=== PATIENT | female | born 1935 | race Caucasian/White ===

== ENCOUNTER → 2017-11-29 13:43 | Outpatient (CLI) | payer MEDICARE, SELFPAY ==
--- NOTE | 2017-11-29 | DI.US.S_ITS ---
ULTRASOUND OF LEFT BREAST: 11/29/2017 CLINICAL: Patient returns today to evaluate a focal asymmetry in the left breast. Comparison is made to exams dated: 11/29/2017 mammogram, 11/09/2017 mammogram, 11/03/2016 mammogram, and 10/29/2015 mammogram - [facility]. Color flow ultrasound of the left breast was performed. Lema scale images of the real-time examination were reviewed. There is a 0.9 cm x 0.7 cm x 0.3 cm mass in the left breast at 1 o'clock middle depth 9 cm from the nipple. This mass is hypoechoic. IMPRESSION: SUSPICIOUS OF MALIGNANCY - FOLLOW-UP RECOMMENDED The 0.9 cm x 0.7 cm x 0.3 cm mass in the left breast is suspicious of malignancy. An ultrasound guided biopsy is recommended. Findings discussed in person with the patient at the time of evaluation by Dr. Bermudez of the department of radiology. This exam was interpreted at Station ID: [id number]. Electronically Signed By: Sudarshan Kirkpatrick M.D. cj/:11/29/2017 16:38:07 letter sent: Biopsy Required Ultrasound BI-RADS: 4 Suspicious abnormality
--- NOTE | 2017-11-29 13:47 | DI.MG.S_ITS ---
UNILATERAL LEFT DIAGNOSTIC MAMMOGRAM WITH ADDITIONAL VIEWS: 11/29/2017 CLINICAL: Additional evaluation requested from prior study. Comparison is made to exams dated: 11/09/2017 mammogram, 11/03/2016 mammogram, and 10/29/2015 mammogram - [facility]. The tissue of the left breast is heterogeneously dense. This may lower the sensitivity of mammography. There is a 9 mm asymmetry in the left breast posterior depth superior region seen on the mediolateral oblique view only. No other significant masses or calcifications are seen in the breast. IMPRESSION: INCOMPLETE: NEEDS ADDITIONAL IMAGING EVALUATION The 9 mm asymmetry in the left breast is indeterminate. An ultrasound is recommended. This exam was interpreted at Station ID: [id number]. NOTE: For mammograms, a report in lay terms will be sent to the patient. Approximately 15% of breast malignancies will not be visualized mammographically. In the management of a palpable breast mass, a negative mammogram must not discourage biopsy of a clinically suspicious lesion. Electronically Signed By: Sudarshan treviño/pablo:11/29/2017 16:36:43 ACR BI-RADS Category 0: Incomplete [id number]
== END ==
PROVIDERS: PCP Family Medicine; Visit Provider Family Medicine
DX: R92.8 Other abnormal and inconclusive findings on diagnostic imaging of breast (principal)
CPT/HCPCS: 76642; 77065; G0279

== ENCOUNTER → 2017-12-20 12:37 | Outpatient (CLI) | payer MEDICARE, SELFPAY | PROVIDERS: PCP Family Medicine; Visit Provider Family Medicine | DX: N63.20 Unspecified lump in the left breast, unspecified quadrant (principal) ==

== ENCOUNTER → 2018-03-22 12:38 | Outpatient (CLI) | payer MEDICARE, SELFPAY ==
--- NOTE | 2018-03-22 15:56 | DI.US.S_ITS ---
ULTRASOUND OF LEFT BREAST: 03/22/2018 CLINICAL: Biopsy of mass at 1 30 9cmfn on LEFT CANCELLED..UNABLE TO FIND MASS. Comparison is made to exams dated: 11/29/2017 ultrasound, 11/29/2017 mammogram, 11/09/2017 mammogram, and 11/03/2016 mammogram - [facility]. Color flow and ward scale ultrasound of the left breast was performed on the areas of interest where a prior US had found a suspicious hypoechoic abnormality that can no longer be found. The patient was scheduled for an US guided biopsy after the 11/29/17 US, but was on anticoagulants for a cardiac arrhythmia. The current US in the area of prior concern, 1:30 position 9 cm from the nipple, now appears normal. There are scattered fibroglandular elements in the left breast, as expected. IMPRESSION: PROBABLY BENIGN - FOLLOW-UP RECOMMENDED Clinician directed physical examination of the area of concern is recommended in the near term, and if a palpable mass is found proceeding directly to breast MRI would be recommended. The patent states she cannot feel an abnormality. If the physical examination is normal then proceeding to a follow-up mammogram in 3 months from now would be recommedned, which would provide a total of 7 months from her prior left diagnostic mammogram and US in November. Breast MRI was discussed with the patient and recommended if there is continued clinical concern, but she also questioned whether a shorter term followup mammogram on the left might be valuable given the unusual circumstances, and I do agree with that approach now even if the near term clinician performed physical examination is normal. This exam was interpreted at Station ID: [id number]. Electronically Signed By: Anibal Bermudez M.D. [facility]/:03/22/2018 17:51:10 letter sent: Followup Recommended Ultrasound BI-RADS: 3 Probably benign
== END ==
PROVIDERS: PCP Family Medicine; Visit Provider Family Medicine
DX: N63.20 Unspecified lump in the left breast, unspecified quadrant (principal)
CPT/HCPCS: 76642

== ENCOUNTER → 2018-04-21 10:01 | Outpatient (CLI) | payer MEDICARE, SELFPAY ==
--- NOTE | 2018-04-21 10:03 | DI.RAD.S_ITS ---
PROCEDURE: XR THORACIC SPINE INDICATIONS: scoliosis TECHNIQUE: 2 views of the thoracic spine were acquired. COMPARISON: [facility], CT, THORAX WITHOUT CONTRAST, 10/05/2016, 10:38. [facility], CR, XR LUMBAR SPINE 2-3V, 04/21/2018, 10:06. FINDINGS: Bones: There is 55? focal levoconvex scoliosis, which is centered at the L2 level. No acute fractures are detected. No suspicious lytic or blastic lesions are seen. Degenerative changes are seen, which are most prominent involving the thoracolumbar junction. Soft tissues: No paravertebral stripe thickening. IMPRESSION: 55? of levoconvex scoliosis, which is centered at the L2 level. Dictated by: Des Turcios M.D. on 04/21/2018 at 11:15 Approved by: Des Turcios M.D. on 04/21/2018 at 11:17
--- NOTE | 2018-04-21 10:03 | DI.RAD.S_ITS ---
PROCEDURE: XR LUMBAR SPINE 2-3V INDICATIONS: scoliosis TECHNIQUE: 3 views of the lumbar spine were acquired. COMPARISON: [facility], MR, L-SPINE WITHOUT CONTRAST, 04/07/2015, 10:11. [facility], CR, XR THORACIC SPINE 3V, 04/21/2018, 10:06. [facility], CR, L-SPINE 2-3 VIEWS, 03/04/2015, 12:29. FINDINGS: Bones: There is 55? of levoconvex scoliosis centered at the L2 level and this has progressed compared to 2014. No acute fractures are seen. Degenerative changes are seen, with moderate to severe disc space narrowing at the L1-L2, L2-L3, and L3-L4 levels. No suspicious lytic or blastic lesions are seen. Facet arthropathy is seen throughout, which is most prominent inferiorly. Soft tissues: Overlying bowel gas pattern is normal. No suspicious soft tissue calcifications. IMPRESSION: Levoconvex scoliosis and degenerative changes, which have progressed compared to 2014. Dictated by: Des Turcios M.D. on 04/21/2018 at 11:17 Approved by: Des Turcios M.D. on 04/21/2018 at 11:19
== END ==
PROVIDERS: PCP Family Medicine; Visit Provider Family Medicine
DX: M41.86 Other forms of scoliosis, lumbar region (principal); M48.061 Spinal stenosis, lumbar region without neurogenic claudication; M47.816 Spondylosis without myelopathy or radiculopathy, lumbar region
CPT/HCPCS: 72072; 72100

== ENCOUNTER → 2018-04-26 12:15 | Outpatient (CLI) | payer MEDICARE, SELFPAY ==
[2018-04-26 13:35] LABS: Alanine Aminotransferase 25 IU/L (9-52); Albumin 4.3 g/dL (3.5-5.0); Albumin Globulin Ratio 1.8 (1.0-2.8); Alkaline Phosphatase 72 U/L (38-126); Aspartate Aminotransferase 33 IU/L (14-36); Bilirubin Total 0.5 mg/dL (0.2-1.3); Blood Urea Nitrogen 24 mg/dL (7-17); Calcium 9.6 mg/dL (8.4-10.2); Carbon Dioxide 32 mmol/L (22-32); Chloride 101 mmol/L (98-107); Estimated Glomerular Filt Rate 53.2 mL/min (>60); Globulin 2.4 g/dL (1.7-4.1); Glucose 78 mg/dL (80-110); HEMOLYSIS < 15 (0-50); Potassium 4.2 mmol/L (3.4-5.1); Sodium 143 mmol/L (137-145); Total Protein 6.7 g/dL (6.3-8.2)
[2018-04-29 15:52] LABS: Alpha 1 Globulin 0.3 g/dL (0.2-0.3); Alpha 2 Globulin 0.7 g/dL (0.5-0.9); Beta 1 Globulin 0.5 g/dL (0.4-0.6); Gamma Globulin 0.5 g/dL (0.8-1.7); Protein, Total 6.4 g/dL (6.1-8.1)
== END ==
PROVIDERS: PCP Family Medicine; Visit Provider Family Medicine
DX: M41.9 Scoliosis, unspecified (principal)
CPT/HCPCS: 36415; 80053; 84155; 84165

== ENCOUNTER → 2018-05-11 10:02 | Outpatient (CLI) | payer MEDICARE, SELFPAY ==
[2018-05-11 13:01] LABS: Blood Urea Nitrogen 25 mg/dL (7-17); Calcium 9.6 mg/dL (8.4-10.2); Carbon Dioxide 31 mmol/L (22-32); Chloride 102 mmol/L (98-107); Estimated Glomerular Filt Rate 53.2 mL/min (>60); Glucose 54 mg/dL (80-110); HEMOLYSIS < 15 (0-50); Sodium 142 mmol/L (137-145)
[2018-05-11 13:03] LABS: Potassium 5.4 mmol/L (3.4-5.1)
== END ==
PROVIDERS: PCP Family Medicine; Visit Provider Family Medicine
DX: N63.20 Unspecified lump in the left breast, unspecified quadrant (principal)
CPT/HCPCS: 36415; 80048

== ENCOUNTER → 2018-07-17 13:30 | Outpatient (CLI) | payer MEDICARE, SELFPAY ==
--- NOTE | 2018-07-17 13:33 | DI.MRI.S_ITS ---
PROCEDURE: MR LUMBAR SPINE WO CON INDICATIONS: Scoliosis TECHNIQUE: Noncontrast sagittal T1 spin echo and T2 fast echo, sagittal STIR, axial T1 and T2 fast spin echo through the lumbar spine. In cases with scoliosis, additional coronal T2 fast spin echo may be performed. COMPARISON: [facility], MR, L-SPINE WITHOUT CONTRAST, 04/07/2015, 10:11. [facility], CR, XR LUMBAR SPINE 2-3V, 04/21/2018, 10:06. FINDINGS: Image quality: Excellent. Alignment and Curvature: There is trace L1-L2, L2-L3-L3-L4 retrolisthesis. There is approximately 40? of convex left of lumbar spine scoliosis. Bone Marrow: Mild reactive endplate changes noted adjacent to the L1-L2, L2-L3 and L3-L4 discs. No acute vertebral body compression fractures. Spinal Cord: Conus medullaris terminates at the L1-2 disc level. Visualized cord demonstrates normal signal and size. Paraspinous Soft Tissues: No paravertebral masses. L1-L2: Loss of disc signal and height. Moderate, diffuse disc bulge. Mild bilateral facet hypertrophy. Mild narrowing of the central canal. Moderate bilateral neural foraminal narrowing. No neural impingement. L2-L3: Loss of disc signal and height. Moderate, diffuse disc bulge. Mild bilateral facet hypertrophy. Mild narrowing of the central canal. Moderate right and mild left neural foraminal narrowing. No neural impingement. L3-L4: Loss of disc signal and height. Moderate, diffuse disc bulge. Mild bilateral facet hypertrophy. Mild narrowing of the central canal. Moderate bilateral neural foraminal narrowing. No neural impingement. L4-L5: Loss of disc signal. Mild, diffuse disc bulge. Mild right and moderate left facet hypertrophy. Mild narrowing of the central canal. Mild to moderate left neural foraminal narrowing. No neural impingement. L5-S1: Loss of disc signal. Mild, diffuse associated mild right and moderate left facet hypertrophy. No central stenosis. Mild left neural foraminal narrowing. No neural impingement. IMPRESSION: 1. Convex left thoracolumbar spine scoliosis. 2. Multilevel degenerative disc disease. 3. Multilevel facet arthropathy. 4. Mild L1-L2, L2-L3, L3-L4 and L4-L5 central canal narrowing. 5. Moderate bilateral L1-L2 and L3-L4 neural foraminal narrowing. Moderate right and mild left L2-L3 neural foraminal narrowing. Mild to moderate left L4-L5 neural foraminal narrowing. Mild left L5-S1 neural foraminal narrowing. 6. No neural impingement. Dictated by: Margarita Harris MD, PhD on 07/17/2018 at 16:27 Approved by: Margarita Harris MD, PhD on 07/17/2018 at 16:50
--- NOTE | 2018-07-17 13:33 | DI.MRI.S_ITS ---
PROCEDURE: MR THORACIC SPINE WO CON INDICATIONS: Scoliosis TECHNIQUE: Noncontrast sagittal T1 spine echo and T2 fast spin echo, sagittal STIR, axial T1 and T2 fast spin echo through the thoracic spine. COMPARISON: [facility], MR, MR LUMBAR SPINE WO CON, 07/17/2018, 14:23. [facility], CT, THORAX WITHOUT CONTRAST, 10/05/2016, 10:38. [facility], CR, XR THORACIC SPINE 3V, 04/21/2018, 10:06. FINDINGS: Image quality: Excellent. Alignment and Curvature: There is normal bony alignment. Convex left thoracolumbar spine scoliosis is noted which is best identified on MRI of the lumbar spine. Bone Marrow: Marrow is of normal overall signal. No acute vertebral body compression fractures. Spinal Cord: Visualized spinal cord is normal in size and signal. Paraspinous Soft Tissues: No paravertebral masses. Moderate-sized right and small left pleural effusions. Miscellaneous: Mild multilevel degenerative disc changes are noted. No central stenosis. No neural foraminal narrowing. No neural impingement. IMPRESSION: 1. Convex left scoliosis. 2. Multilevel degenerative disease 3. No central stenosis 4. No neural foraminal narrowing. 5. No neural impingement. 6. Bilateral pleural effusions. Dictated by: Margarita Harris MD, PhD on 07/17/2018 at 16:58 Approved by: Margarita Harris MD, PhD on 07/17/2018 at 17:01
== END ==
PROVIDERS: PCP Family Medicine; Visit Provider Family Medicine
DX: M51.36 Other intervertebral disc degeneration, lumbar region (principal); M41.85 Other forms of scoliosis, thoracolumbar region; M47.816 Spondylosis without myelopathy or radiculopathy, lumbar region; M48.061 Spinal stenosis, lumbar region without neurogenic claudication; M48.07 Spinal stenosis, lumbosacral region; M51.34 Other intervertebral disc degeneration, thoracic region; J90 Pleural effusion, not elsewhere classified
CPT/HCPCS: 72146; 72148

== ENCOUNTER → 2018-09-02 11:19 | Outpatient (CLI) | payer MEDICARE, SELFPAY ==
[2018-09-02 12:00] LABS: Alanine Aminotransferase 38 IU/L (9-52); Albumin 4.2 g/dL (3.5-5.0); Albumin Globulin Ratio 1.6 (1.0-2.8); Alkaline Phosphatase 92 U/L (38-126); Aspartate Aminotransferase 56 IU/L (14-36); Bilirubin Total 0.4 mg/dL (0.2-1.3); Blood Urea Nitrogen 36 mg/dL (7-17); Calcium 9.4 mg/dL (8.4-10.2); Carbon Dioxide 29 mmol/L (22-32); Chloride 103 mmol/L (98-107); Estimated Glomerular Filt Rate 53.1 mL/min (>60); Globulin 2.6 g/dL (1.7-4.1); Glucose 91 mg/dL (80-110); HEMOLYSIS < 15 (0-50); Potassium 4.6 mmol/L (3.4-5.1); Sodium 141 mmol/L (137-145); Total Protein 6.8 g/dL (6.3-8.2)
== END ==
PROVIDERS: PCP Family Medicine; Visit Provider Family Medicine
DX: N18.9 Chronic kidney disease, unspecified (principal)
CPT/HCPCS: 36415; 80053

== ENCOUNTER 2018-10-02 15:23 | Emergency (ER) | payer MEDICARE, SELFPAY ==
[2018-10-02 15:37] VITALS: BP 148/92; PULSE 72; RESP 18; TEMP 36.7; O2SAT 96
--- NOTE | 2018-10-02 16:44 | ED.EXTPRO ---
HPI - Extremity Problem <BURT Lopez - Last Filed: 10/02/18 22:05> General Chief complaint: Extremity Problem,Nontraumatic Stated complaint: swelling rt leg fluid Time Seen by Provider: 10/02/18 16:26 Source: patient Mode of arrival: ambulatory Limitations: no limitations History of Present Illness HPI Narrative: 83-year-old female with history of AFib that is a nonsmoker here for complaint having swelling to her bilateral lower extremities. she reports she has been seen for this in the past and she was prescribed HCTZ by her primary care provider a few weeks ago and she states she did not tolerate the medication well. So she quit taking it. She reports increased pain to her extremities over the past several days. She now has some clear drainage from the back of her right calf. No trauma to the area. She denies chest pain no shortness of breath. She denies fevers or chills. No diaphoresis. She does state that she has been on her feet more recently. He denies any pain. She does state that she was prescribed compression socks in the past however she did not like them so she she does not use them. MD Complaint: extremity swelling Related Data Home Medications Medication Instructions Recorded Confirmed metoprolol tartrate 100 mg PO BID #0 05/30/16 10/02/18 diltiazem HCl [Cartia XT] 240 mg PO DAILY 10/02/18 Previous Rx's Medication Instructions Recorded apixaban 2.5 mg tablet 2.5 mg PO BID #180 tab 07/24/18 hydrochlorothiazide 12.5 mg tablet 12.5 mg PO DAILY #30 tab 09/22/18 meclizine 25 mg tablet 25 mg PO DAILY PRN #30 tab 09/29/18 furosemide 40 mg PO BID #14 tab 10/02/18 Allergies Allergy/AdvReac Type Severity Reaction Status Date / Time levofloxacin [From LEVAQUIN] Allergy Intermediate knocked Verified 10/02/18 15:52 me out, weak and dizzy Sulfa (Sulfonamide Allergy Mild ITCHY WELTS Verified 10/02/18 15:52 Antibiotics) [SULFA (SULFONAMIDE ANTIBIOTICS)] Review of Systems <BURT Lopez - Last Filed: 10/02/18 22:05> Constitutional Denies chills, Denies fever(s), Denies lethargy and Denies weakness Eyes Denies change in vision, Denies eye discharge, Denies irritation and Denies loss of vision ENT Ears, Nose, Mouth, and Throat: Denies change in voice, Denies neck pain and Denies sore throat Cardiovascular Denies chest pain, Denies irregular heart rhythm, Denies lightheadedness, Denies palpitations, Denies dyspnea, Denies dyspnea on exertion and Denies orthopnea Respiratory Denies cough, Denies dyspnea, Denies dyspnea on exertion and Denies wheezing Gastrointestinal Gastrointestinal: Denies abdominal pain, Denies change in bowel habits, Denies diarrhea, Denies nausea and Denies vomiting Genitourinary Denies hematuria, Denies flank pain, Denies urinary incontinence and Denies urinary urgency Musculoskeletal Denies neck pain Comments: swelling to bilateral lower extremities with clear drainage from right lower extremity Calf area with small opening. no signs of infection. Neurologic Denies confusion, Denies loss of vision and Denies weakness Psychiatric Denies anxiety, Denies confusion, Denies depression, Denies homicidal ideation and Denies suicidal ideation Endocrine Denies palpitations Hematologic/Lymphatic Denies easy bruising Allergic/Immunologic Denies wheezing PFSH <BURT Lopez - Last Filed: 10/02/18 22:05> Medical History Atrial fibrillation (Chronic Unknown) Hearing loss (Chronic Unknown) Hypertension (Chronic Unknown) Osteopenia (Chronic Unknown) Spinal stenosis (Chronic Unknown) Tinnitus of both ears (Chronic Unknown) Pneumonia (Resolved 09/2016) Surgical History Hx of cystoscopy (Resolved 04/2011) Family History Father Hypertension Mother Hypertension Social History Smoking Status: Never smoker alcohol intake: never substance use type: does not use Family History Father Hypertension Mother Hypertension Social History Smoking Status: Never smoker alcohol intake: never substance use type: does not use Exam <BURT Lopez - Last Filed: 10/02/18 22:05> Initial Vital Signs Initial Vital Signs: Vital Signs Temperature 98.1 F 10/02/18 15:37 Pulse Rate 72 10/02/18 15:37 Respiratory Rate 18 10/02/18 15:37 Blood Pressure 148/92 H 10/02/18 15:37 Pulse Oximetry 96 10/02/18 15:37 Const General: cooperative and well developed Nutritional Appearance: well nourished Orientation: alert, awake, oriented x3 and not confused HENMT Mouth: oral mucosae normal and moist mucous membranes Eyes Conjunctivae: conjunctivae normal Sclera: sclerae normal Pupils: PERRL EOM: EOM intact bilaterally Resp Effort & Inspection: normal respiratory effort, able to speak in complete sentences, no respiratory distress and no use of accessory muscles Auscultation: clear to auscultation bilaterally, no rales, no rhonchi and no wheezes Cardio Rate: regular rate Rhythm: regular rhythm Heart Sounds: no click, no gallops, no murmurs and no rubs Pulses: normal peripheral pulses GI Inspection: non-distended Palpation: soft, no hepatosplenomegaly, No guarding, No pulsatile mass and No tender Auscultation: normal bowel sounds Skin General: no rashes or lesions noted, No jaundice and No petechiae Neuro General: alert, oriented x3, gait normal and no focal motor deficits Speech: speech normal Extrem Other: +2 to +3 pitting edema to bilateral lower extremities. No erythema. No increased temperature. Distal CMS is intact. Small open lesion to back of the right calf that is leaking serous drainage. <Hitesh Smart DO - Last Filed: 10/02/18 22:08> Initial Vital Signs Initial Vital Signs: Vital Signs Temperature 98.1 F 10/02/18 15:37 Pulse Rate 72 10/02/18 15:37 Respiratory Rate 18 10/02/18 15:37 Blood Pressure 148/92 H 10/02/18 15:37 Pulse Oximetry 96 10/02/18 15:37 Course <BURT Lopez - Last Filed: 10/02/18 22:05> Orders Ordered: ED Orders 10/02/18 17:23 XR chest 1V Stat 10/02/18 17:33 EKG-12 Lead Stat 10/02/18 17:45 B Type Natriuretic Peptide Stat Complete Blood Count AUTO DIFF Stat Comprehensive Metabolic Panel Stat Prothrombin Time INR Stat Troponin & CK Cardiac Panel Stat Discontinued Medications Furosemide (Lasix) 40 mg IV NOW ONE Stop: 10/02/18 18:49 Last Admin: 10/02/18 19:12 Dose: 40 mg Vital Signs - 8 hr 10/02/18 15:37 10/02/18 18:01 10/02/18 19:30 Temperature 98.1 F Pulse Rate 72 68 58 L Respiratory Rate 18 18 11 L Blood Pressure 148/92 H Blood Pressure [Right Arm] 124/81 137/97 H Pulse Oximetry 96 93 93 <Hitesh Smart DO - Last Filed: 10/02/18 22:08> Orders Ordered: ED Orders 10/02/18 17:23 XR chest 1V Stat 10/02/18 17:33 EKG-12 Lead Stat 10/02/18 17:45 B Type Natriuretic Peptide Stat Complete Blood Count AUTO DIFF Stat Comprehensive Metabolic Panel Stat Prothrombin Time INR Stat Troponin & CK Cardiac Panel Stat Discontinued Medications Furosemide (Lasix) 40 mg IV NOW ONE Stop: 10/02/18 18:49 Last Admin: 10/02/18 19:12 Dose: 40 mg Vital Signs - 8 hr 10/02/18 15:37 10/02/18 18:01 10/02/18 19:30 Temperature 98.1 F Pulse Rate 72 68 58 L Respiratory Rate 18 18 11 L Blood Pressure 148/92 H Blood Pressure [Right Arm] 124/81 137/97 H Pulse Oximetry 96 93 93 MDM - Extremity (Nontraumatic) <BURT Lopez - Last Filed: 10/02/18 22:05> Lab Data Result diagrams: 10/02/18 17:45 10/02/18 17:45 Lab Results 10/02/18 10/02/18 10/02/18 Range/Units 17:45 17:45 17:45 WBC 6.3 (4.5-11.0) X10^3/uL RBC 4.85 (4.0-5.2) X10^6/uL Hgb 14.6 (12.0-16.0) g/dL Hct 44.9 (36-46) % MCV 92.6 (80-100) fL MCH 30.2 (26-34) PG MCHC 32.6 (30-36) % RDW 14.3 (11.6-14.8) % Plt Count 104 L (150-400) X10^3/uL Neut % (Auto) 76.5 H (50-75) % Lymph % (Auto) 14.1 L (25-40) % [place] % (Auto) 7.7 (3-14) % Eos % (Auto) 1.5 L (2-4) % Baso % (Auto) 0.2 (0-2) % Neut # (Auto) 4800 (0376-0687) /uL Lymph # (Auto) 900 L (1907-1167) /uL [place] # (Auto) 500 (0-900) /uL Eos # (Auto) 100 (0-450) /uL Baso # (Auto) 0 (0-100) /uL PT 13.6 H (10.1-12.7) SECONDS INR 1.2 (0.9-1.3) Sodium 139 (137-145) mmol/L Potassium 4.3 (3.4-5.1) mmol/L Chloride 103 (98-107) mmol/L Carbon Dioxide 26 (22-32) mmol/L BUN 29 H (7-17) mg/dL Creatinine 1.10 H (0.52-1.04) mg/dL Estimated GFR 47.6 L (>60) mL/min BUN/Creatinine Ratio 26.4 H (6-22) Glucose 86 (80-110) mg/dL Calcium 9.7 (8.4-10.2) mg/dL Total Bilirubin 0.5 (0.2-1.3) mg/dL AST 61 H (14-36) IU/L ALT 53 H (9-52) IU/L Alkaline Phosphatase 104 (38-126) U/L Total Creatine Kinase 107 (30-135) U/L CK-MB (CK-2) 6.07 H (<2.37) ng/mL CK-MB (CK-2) Rel Index 5.7 H (1.5-5.0) % Troponin I < 0.012 (0.01-0.034) ng/mL B-Natriuretic Peptide 523 H (<100) Total Protein 6.7 (6.3-8.2) g/dL Albumin 3.9 (3.5-5.0) g/dL Globulin 2.8 (1.7-4.1) g/dL Albumin/Globulin Ratio 1.4 (1.0-2.8) Imaging Data Chest x-ray: Radiologist's impression: [address] [place] [id number] XRay Report Signed Patient: Nighat Doll MMR#: [id number] : 6Acct:[id number] Age/Sex: 83 / FDate of Service: 10/02/18 Loc: ED Accession Number: [id number] Procedure: XR chest 1V Ordering Provider: Toni Aparicio PROCEDURE: XR CHEST 1V INDICATIONS: swelling to bilateral lower extremities TECHNIQUE: One view of the chest was acquired. COMPARISON: [facility], CHEST 2 VIEW, 10/10/2017, 7:52. FINDINGS: Surgical changes and devices: None. Lungs and pleura: There is a small to moderate right pleural effusion which is new when compared with the prior chest film dated 10/10/17. Consolidation is likely present at the left lung base. The left lung is clear. The lung volumes are large and the diaphragms are flattened suggesting emphysema. Mediastinum: Mediastinal contours appear normal. Heart size is normal. Bones and chest wall: No suspicious bony lesions. Overlying soft tissues appear unremarkable. IMPRESSION: Right pleural effusion and basilar consolidation. Short interval followup is recommended to ensure resolution of this finding and exclude underlying pulmonary pathology. Dictated by: Cathi Traylor M.D. on 10/02/2018 at 17:41 Approved by: Cathi Traylor M.D. on 10/02/2018 at 17:41 ECG Data Interpretation: EKG shows atrial fibrillation with no ST elevation or depression. No ectopy. Ventricular rate of 77. QRS duration of 93. QTC of 407 MDM Narrative Medical decision making narrative: chest x-ray was obtained and it shows some right pleural effusion and basilar consolidation. CBC and Chem panel were obtained were unremarkable. cardiac enzymes were negative. BNP was obtained and shows elevation at 500. This is over where she has been before which is normally run around 2-300. Suggestive that her symptoms are due to A bump in her CHF. believe that the findings in the chest ray is secondary to this. Discussed case with Dr. Mi who is on-call for Dr. Bess who recommends given the patient IV Lasix here in the emergency room. He then recommends outpatient treatment with 40 of Lasix b.i.d. and then follow up with Dr. Bess in the next couple days for re-evaluation. Lasix prescription is provided. Elevation to help with swelling to lower extremities. Return emergency room for any worsening symptoms <Hitesh SmartDO - Last Filed: 10/02/18 22:08> Lab Data Lab Results 10/02/18 10/02/18 10/02/18 Range/Units 17:45 17:45 17:45 WBC 6.3 (4.5-11.0) X10^3/uL RBC 4.85 (4.0-5.2) X10^6/uL Hgb 14.6 (12.0-16.0) g/dL Hct 44.9 (36-46) % MCV 92.6 (80-100) fL MCH 30.2 (26-34) PG MCHC 32.6 (30-36) % RDW 14.3 (11.6-14.8) % Plt Count 104 L (150-400) X10^3/uL Neut % (Auto) 76.5 H (50-75) % Lymph % (Auto) 14.1 L (25-40) % [place] % (Auto) 7.7 (3-14) % Eos % (Auto) 1.5 L (2-4) % Baso % (Auto) 0.2 (0-2) % Neut # (Auto) 4800 (4289-3207) /uL Lymph # (Auto) 900 L (6931-0042) /uL [place] # (Auto) 500 (0-900) /uL Eos # (Auto) 100 (0-450) /uL Baso # (Auto) 0 (0-100) /uL PT 13.6 H (10.1-12.7) SECONDS INR 1.2 (0.9-1.3) Sodium 139 (137-145) mmol/L Potassium 4.3 (3.4-5.1) mmol/L Chloride 103 (98-107) mmol/L Carbon Dioxide 26 (22-32) mmol/L BUN 29 H (7-17) mg/dL Creatinine 1.10 H (0.52-1.04) mg/dL Estimated GFR 47.6 L (>60) mL/min BUN/Creatinine Ratio 26.4 H (6-22) Glucose 86 (80-110) mg/dL Calcium 9.7 (8.4-10.2) mg/dL Total Bilirubin 0.5 (0.2-1.3) mg/dL AST 61 H (14-36) IU/L ALT 53 H (9-52) IU/L Alkaline Phosphatase 104 (38-126) U/L Total Creatine Kinase 107 (30-135) U/L CK-MB (CK-2) 6.07 H (<2.37) ng/mL CK-MB (CK-2) Rel Index 5.7 H (1.5-5.0) % Troponin I < 0.012 (0.01-0.034) ng/mL B-Natriuretic Peptide 523 H (<100) Total Protein 6.7 (6.3-8.2) g/dL Albumin 3.9 (3.5-5.0) g/dL Globulin 2.8 (1.7-4.1) g/dL Albumin/Globulin Ratio 1.4 (1.0-2.8) Discharge Plan Departure Patient Disposition: Home Clinical Impression: Congestive heart failure (CHF) Qualifiers: Heart failure type: unspecified Heart failure chronicity: unspecified Qualified Code(s): I50.9 - Heart failure, unspecified Discharge Date/Time: 10/02/18 20:00 Interventions: ED Discharge Assessment Last Done: 10/02/18 20:05 Instructions: DI for Heart Failure Activity Restrictions/Additional Instructions: laboratory results and that chest x-ray shows exacerbation of heart failure. You are placed on Lasix which is a diuretic to remove some of the fluid building up in her legs and lungs. Use as directed. Follow up with your primary care provider here in the next couple days for re-evaluation. Call the office number to schedule follow-up appointment. For any worsening symptoms return to the emergency room. Elevate lower extremities to help with swelling. Prescriptions: New furosemide 40 mg tablet 40 mg PO BID Qty: 14 RF: 0 No Action meclizine 25 mg tablet 25 mg PO DAILY PRN (Reason: dizziness) Qty: 30 RF: 0 metoprolol tartrate 100 MG tablet 100 mg PO BID Qty: 0 RF: 0 apixaban [Eliquis] 2.5 mg tablet 2.5 mg PO BID Qty: 180 RF: 0 hydrochlorothiazide 12.5 mg tablet 12.5 mg PO DAILY Qty: 30 RF: 0 diltiazem HCl [Cartia XT] 120 mg capsule,extended release 24hr 240 mg PO DAILY RF: 0 Referrals: Kierra Bess DO [Primary Care Provider] - <Hitesh Smart DO - Last Filed: 10/02/18 22:08> Cosign ED Attending [place] Attestation: I was available for consultation during this patient's emergency department encounter
--- NOTE | 2018-10-02 17:01 | PC.NURSE ---
pt reports she has been working with her provider with trying to get the fluid off her legs, but she isn't tolerating the medications they have put her on. She is worried because her right leg is leaking fluid. And she takes Elaquis. Pt NAD and lungs are clear. Able to palpate both pedal pulses although her lower legs are edematous. Pt's needs met.
--- NOTE | 2018-10-02 17:23 | DI.RAD.S_ITS ---
PROCEDURE: XR CHEST 1V INDICATIONS: swelling to bilateral lower extremities TECHNIQUE: One view of the chest was acquired. COMPARISON: [facility], , CHEST 2 VIEW, 10/10/2017, 7:52. FINDINGS: Surgical changes and devices: None. Lungs and pleura: There is a small to moderate right pleural effusion which is new when compared with the prior chest film dated 10/10/17. Consolidation is likely present at the left lung base. The left lung is clear. The lung volumes are large and the diaphragms are flattened suggesting emphysema. Mediastinum: Mediastinal contours appear normal. Heart size is normal. Bones and chest wall: No suspicious bony lesions. Overlying soft tissues appear unremarkable. IMPRESSION: Right pleural effusion and basilar consolidation. Short interval followup is recommended to ensure resolution of this finding and exclude underlying pulmonary pathology. Dictated by: Cathi Traylor M.D. on 10/02/2018 at 17:41 Approved by: Cathi Traylor M.D. on 10/02/2018 at 17:41
[2018-10-02 17:52] LABS: Add Manual Diff / Slide Review NO; Basophils Absolute Auto 0 /uL (0-100); Basophils Percent Auto 0.2 % (0-2); Eosinophils Absolute Auto 100 /uL (0-450); Eosinophils Percent Auto 1.5 % (2-4); Hematocrit 44.9 % (36-46); Hemoglobin 14.6 g/dL (12.0-16.0); Lymphocytes Absolute Auto 900 /uL (1100-4500); Lymphocytes Percent Auto 14.1 % (25-40); Mean Corpuscular HGB Conc 32.6 % (30-36); Mean Corpuscular Hemoglobin 30.2 PG (26-34); Mean Corpuscular Volume 92.6 fL (80-100); Monocytes Absolute Auto 500 /uL (0-900); Monocytes Percent Auto 7.7 % (3-14); Neutrophils Absolute Auto 4800 /uL (1500-7000); Neutrophils Percent Auto 76.5 % (50-75); Platelet Count 104 X10^3/uL (150-400); Red Blood Cell Count 4.85 X10^6/uL (4.0-5.2); Red Cell Distribution Width 14.3 % (11.6-14.8); White Blood Cell Count 6.3 X10^3/uL (4.5-11.0)
[2018-10-02 18:01] VITALS: BP 124/81; PULSE 68; RESP 18; O2SAT 93
[2018-10-02 18:08] LABS: INR 1.2 (0.9-1.3); Prothrombin Time 13.6 SECONDS (10.1-12.7)
[2018-10-02 18:13] LABS: Alanine Aminotransferase 53 IU/L (9-52); Albumin 3.9 g/dL (3.5-5.0); Albumin Globulin Ratio 1.4 (1.0-2.8); Alkaline Phosphatase 104 U/L (38-126); Aspartate Aminotransferase 61 IU/L (14-36); BUN Creatinine Ratio 26.4 (6-22); Bilirubin Total 0.5 mg/dL (0.2-1.3); Blood Urea Nitrogen 29 mg/dL (7-17); Calcium 9.7 mg/dL (8.4-10.2); Carbon Dioxide 26 mmol/L (22-32); Chloride 103 mmol/L (98-107); Creatine Kinase 107 U/L (30-135); Estimated Glomerular Filt Rate 47.6 mL/min (>60); Globulin 2.8 g/dL (1.7-4.1); Glucose 86 mg/dL (80-110); HEMOLYSIS 17 (0-50); Potassium 4.3 mmol/L (3.4-5.1); Sodium 139 mmol/L (137-145); Total Protein 6.7 g/dL (6.3-8.2)
[2018-10-02 18:24] LABS: Troponin I < 0.012 ng/mL (0.01-0.034)
[2018-10-02 18:25] LABS: B Type Natriuretic Peptide 523 (<100)
[2018-10-02 18:28] LABS: CKMB % Relative Index 5.7 % (1.5-5.0); Creatine Kinase MB 6.07 ng/mL (<2.37)
--- NOTE | 2018-10-02 19:01 | ED_ITS ---
HPI - Extremity Problem <BURT Lopez - Last Filed: 10/02/18 22:05> General Chief complaint: Extremity Problem,Nontraumatic Stated complaint: swelling rt leg fluid Time Seen by Provider: 10/02/18 16:26 Source: patient Mode of arrival: ambulatory Limitations: no limitations History of Present Illness HPI Narrative: 83-year-old female with history of AFib that is a nonsmoker here for complaint having swelling to her bilateral lower extremities. she reports she has been seen for this in the past and she was prescribed HCTZ by her primary care provider a few weeks ago and she states she did not tolerate the medication well. So she quit taking it. She reports increased pain to her extremities over the past several days. She now has some clear drainage from the back of her right calf. No trauma to the area. She denies chest pain no shortness of breath. She denies fevers or chills. No diaphoresis. She does state that she has been on her feet more recently. He denies any pain. She does state that she was prescribed compression socks in the past however she did not like them so she she does not use them. MD Complaint: extremity swelling Related Data Home Medications Medication Instructions Recorded Confirmed metoprolol tartrate 100 mg PO BID #0 05/30/16 10/02/18 diltiazem HCl [Cartia XT] 240 mg PO DAILY 10/02/18 Previous Rx's Medication Instructions Recorded apixaban 2.5 mg tablet 2.5 mg PO BID #180 tab 07/24/18 hydrochlorothiazide 12.5 mg tablet 12.5 mg PO DAILY #30 tab 09/22/18 meclizine 25 mg tablet 25 mg PO DAILY PRN #30 tab 09/29/18 furosemide 40 mg PO BID #14 tab 10/02/18 Allergies Allergy/AdvReac Type Severity Reaction Status Date / Time levofloxacin [From LEVAQUIN] Allergy Intermediate knocked Verified 10/02/18 15:52 me out, weak and dizzy Sulfa (Sulfonamide Allergy Mild ITCHY WELTS Verified 10/02/18 15:52 Antibiotics) [SULFA (SULFONAMIDE ANTIBIOTICS)] Review of Systems <BURT Lopez - Last Filed: 10/02/18 22:05> Constitutional Denies chills, Denies fever(s), Denies lethargy and Denies weakness Eyes Denies change in vision, Denies eye discharge, Denies irritation and Denies loss of vision ENT Ears, Nose, Mouth, and Throat: Denies change in voice, Denies neck pain and Denies sore throat Cardiovascular Denies chest pain, Denies irregular heart rhythm, Denies lightheadedness, Denies palpitations, Denies dyspnea, Denies dyspnea on exertion and Denies orthopnea Respiratory Denies cough, Denies dyspnea, Denies dyspnea on exertion and Denies wheezing Gastrointestinal Gastrointestinal: Denies abdominal pain, Denies change in bowel habits, Denies diarrhea, Denies nausea and Denies vomiting Genitourinary Denies hematuria, Denies flank pain, Denies urinary incontinence and Denies urinary urgency Musculoskeletal Denies neck pain Comments: swelling to bilateral lower extremities with clear drainage from r ight lower extremity Calf area with small opening. no signs of infection. Neurologic Denies confusion, Denies loss of vision and Denies weakness Psychiatric Denies anxiety, Denies confusion, Denies depression, Denies homicidal ideation and Denies suicidal ideation Endocrine Denies palpitations Hematologic/Lymphatic Denies easy bruising Allergic/Immunologic Denies wheezing PFSH <BURT Lopez - Last Filed: 10/02/18 22:05> Medical History Atrial fibrillation (Chronic Unknown) Hearing loss (Chronic Unknown) Hypertension (Chronic Unknown) Osteopenia (Chronic Unknown) Spinal stenosis (Chronic Unknown) Tinnitus of both ears (Chronic Unknown) Pneumonia (Resolved 09/2016) Surgical History Hx of cystoscopy (Resolved 04/2011) Family History Father Hypertension Mother Hypertension Social History Smoking Status: Never smoker alcohol intake: never substance use type: does not use Family History Father Hypertension Mother Hypertension Social History Smoking Status: Never smoker alcohol intake: never substance use type: does not use Exam <BURT Lopez - Last Filed: 10/02/18 22:05> Initial Vital Signs Initial Vital Signs: Vital Signs Temperature 98.1 F 10/02/18 15:37 Pulse Rate 72 10/02/18 15:37 Respiratory Rate 18 10/02/18 15:37 Blood Pressure 148/92 H 10/02/18 15:37 Pulse Oximetry 96 10/02/18 15:37 Const General: cooperative and well developed Nutritional Appearance: well nourished Orientation: alert, awake, oriented x3 and not confused HENMT Mouth: oral mucosae normal and moist mucous membranes Eyes Conjunctivae: conjunctivae normal Sclera: sclerae normal Pupils: PERRL EOM: EOM intact bilaterally Resp Effort & Inspection: normal respiratory effort, able to speak in complete sentences, no respiratory distress and no use of accessory muscles Auscultation: clear to auscultation bilaterally, no rales, no rhonchi and no wheezes Cardio Rate: regular rate Rhythm: regular rhythm Heart Sounds: no click, no gallops, no murmurs and no rubs Pulses: normal peripheral pulses GI Inspection: non-distended Palpation: soft, no hepatosplenomegaly, No guarding, No pulsatile mass and No tender Auscultation: normal bowel sounds Skin General: no rashes or lesions noted, No jaundice and No petechiae Neuro General: alert, oriented x3, gait normal and no focal motor deficits Speech: speech normal Extrem Other: +2 to +3 pitting edema to bilateral lower extremities. No erythema. No increased temperature. Distal CMS is intact. Small open lesion to back of the right calf that is leaking serous drainage. <Hitesh Smart DO - Last Filed: 10/02/18 22:08> Initial Vital Signs Initial Vital Signs: Vital Signs Temperature 98.1 F 10/02/18 15:37 Pulse Rate 72 10/02/18 15:37 Respiratory Rate 18 10/02/18 15:37 Blood Pressure 148/92 H 10/02/18 15:37 Pulse Oximetry 96 10/02/18 15:37 Course <BURT Lopez - Last Filed: 10/02/18 22:05> Orders Ordered: ED Orders 10/02/18 17:23 XR chest 1V Stat 10/02/18 17:33 EKG-12 Lead Stat 10/02/18 17:45 B Type Natriuretic Peptide Stat Complete Blood Count AUTO DIFF Stat Comprehensive Metabolic Panel Stat Prothrombin Time INR Stat Troponin & CK Cardiac Panel Stat Discontinued Medications Furosemide (Lasix) 40 mg IV NOW ONE Stop: 10/02/18 18:49 Last Admin: 10/02/18 19:12 Dose: 40 mg Vital Signs - 8 hr 10/02/18 15:37 10/02/18 18:01 10/02/18 19:30 Temperature 98.1 F Pulse Rate 72 68 58 L Respiratory Rate 18 18 11 L Blood Pressure 148/92 H Blood Pressure [Right Arm] 124/81 137/97 H Pulse Oximetry 96 93 93 <Hitesh Smart DO - Last Filed: 10/02/18 22:08> Orders Ordered: ED Orders 10/02/18 17:23 XR chest 1V Stat 10/02/18 17:33 EKG-12 Lead Stat 10/02/18 17:45 B Type Natriuretic Peptide Stat Complete Blood Count AUTO DIFF Stat Comprehensive Metabolic Panel Stat Prothrombin Time INR Stat Troponin & CK Cardiac Panel Stat Discontinued Medications Furosemide (Lasix) 40 mg IV NOW ONE Stop: 10/02/18 18:49 Last Admin: 10/02/18 19:12 Dose: 40 mg Vital Signs - 8 hr 10/02/18 15:37 10/02/18 18:01 10/02/18 19:30 Temperature 98.1 F Pulse Rate 72 68 58 L Respiratory Rate 18 18 11 L Blood Pressure 148/92 H Blood Pressure [Right Arm] 124/81 137/97 H Pulse Oximetry 96 93 93 MDM - Extremity (Nontraumatic) <BURT Lopez - Last Filed: 10/02/18 22:05> Lab Data Result diagrams: 10/02/18 17:45 10/02/18 17:45 Lab Results 10/02/18 10/02/18 10/02/18 Range/Units 17:45 17:45 17:45 WBC 6.3 (4.5-11.0) X10^3/uL RBC 4.85 (4.0-5.2) X10^6/uL Hgb 14.6 (12.0-16.0) g/dL Hct 44.9 (36-46) % MCV 92.6 (80-100) fL MCH 30.2 (26-34) PG MCHC 32.6 (30-36) % RDW 14.3 (11.6-14.8) % Plt Count 104 L (150-400) X10^3/uL Neut % (Auto) 76.5 H (50-75) % Lymph % (Auto) 14.1 L (25-40) % [place] % (Auto) 7.7 (3-14) % Eos % (Auto) 1.5 L (2-4) % Baso % (Auto) 0.2 (0-2) % Neut # (Auto) 4800 (3178-6897) /uL Lymph # (Auto) 900 L (9683-1034) /uL [place] # (Auto) 500 (0-900) /uL Eos # (Auto) 100 (0-450) /uL Baso # (Auto) 0 (0-100) /uL PT 13.6 H (10.1-12.7) SECONDS INR 1.2 (0.9-1.3) Sodium 139 (137-145) mmol/L Potassium 4.3 (3.4-5.1) mmol/L Chloride 103 (98-107) mmol/L Carbon Dioxide 26 (22-32) mmol/L BUN 29 H (7-17) mg/dL Creatinine 1.10 H (0.52-1.04) mg/dL Estimated GFR 47.6 L (>60) mL/min BUN/Creatinine Ratio 26.4 H (6-22) Glucose 86 (80-110) mg/dL Calcium 9.7 (8.4-10.2) mg/dL Total Bilirubin 0.5 (0.2-1.3) mg/dL AST 61 H (14-36) IU/L ALT 53 H (9-52) IU/L Alkaline Phosphatase 104 (38-126) U/L Total Creatine Kinase 107 (30-135) U/L CK-MB (CK-2) 6.07 H (<2.37) ng/mL CK-MB (CK-2) Rel Index 5.7 H (1.5-5.0) % Troponin I < 0.012 (0.01-0.034) ng/mL B-Natriuretic Peptide 523 H (<100) Total Protein 6.7 (6.3-8.2) g/dL Albumin 3.9 (3.5-5.0) g/dL Globulin 2.8 (1.7-4.1) g/dL Albumin/Globulin Ratio 1.4 (1.0-2.8) Imaging Data Chest x-ray: Radiologist's impression: [address] [place] [id number] XRay Report Signed Patient: Nighat Doll MMR#: [id number] : 6Acct:[id number] Age/Sex: 83 / FDate of Service: 10/02/18 Loc: ED Accession Number: [id number] Procedure: XR chest 1V Ordering Provider: Toni Aparicio PROCEDURE: XR CHEST 1V INDICATIONS: swelling to bilateral lower extremities TECHNIQUE: One view of the chest was acquired. COMPARISON: [facility], CHEST 2 VIEW, 10/10/2017, 7:52. FINDINGS: Surgical changes and devices: None. Lungs and pleura: There is a small to moderate right pleural effusion which is new when compared with the prior chest film dated 10/10/17. Consolidation is likely present at the left lung base. The left lung is clear. The lung volumes are large and the diaphragms are flattened suggesting emphysema. Mediastinum: Mediastinal contours appear normal. Heart size is normal. Bones and chest wall: No suspicious bony lesions. Overlying soft tissues appear unremarkable. IMPRESSION: Right pleural effusion and basilar consolidation. Short interval followup is recommended to ensure resolution of this finding and exclude underlying pulmonary pathology. Dictated by: Cathi Traylor M.D. on 10/02/2018 at 17:41 Approved by: Cathi Traylor M.D. on 10/02/2018 at 17:41 ECG Data Interpretation: EKG shows atrial fibrillation with no ST elevation or depression. No ectopy. Ventricular rate of 77. QRS duration of 93. QTC of 407 MDM Narrative Medical decision making narrative: chest x-ray was obtained and it shows some right pleural effusion and basilar consolidation. CBC and Chem panel were obtained were unremarkable. cardiac enzymes were negative. BNP was obtained and shows elevation at 500. This is over where she has been before which is normally run around 2-300. Suggestive that her symptoms are due to A bump in her CHF. believe that the findings in the chest ray is secondary to this. Discussed case with Dr. Mi who is on-call for Dr. Bess who recommends given the patient IV Lasix here in the emergency room. He then recommends outpatient treatment with 40 of Lasix b.i.d. and then follow up with Dr. Bess in the next couple days for re-evaluation. Lasix prescription is provided. Elevation to help with swelling to lower extremities. Return emergency room for any worsening symptoms <Hitesh Smart, - Last Filed: 10/02/18 22:08> Lab Data Lab Results 10/02/18 10/02/18 10/02/18 Range/Units 17:45 17:45 17:45 WBC 6.3 (4.5-11.0) X10^3/uL RBC 4.85 (4.0-5.2) X10^6/uL Hgb 14.6 (12.0-16.0) g/dL Hct 44.9 (36-46) % MCV 92.6 (80-100) fL MCH 30.2 (26-34) PG MCHC 32.6 (30-36) % RDW 14.3 (11.6-14.8) % Plt Count 104 L (150-400) X10^3/uL Neut % (Auto) 76.5 H (50-75) % Lymph % (Auto) 14.1 L (25-40) % [place] % (Auto) 7.7 (3-14) % Eos % (Auto) 1.5 L (2-4) % Baso % (Auto) 0.2 (0-2) % Neut # (Auto) 4800 (2167-2383) /uL Lymph # (Auto) 900 L (9845-5976) /uL [place] # (Auto) 500 (0-900) /uL Eos # (Auto) 100 (0-450) /uL Baso # (Auto) 0 (0-100) /uL PT 13.6 H (10.1-12.7) SECONDS INR 1.2 (0.9-1.3) Sodium 139 (137-145) mmol/L Potassium 4.3 (3.4-5.1) mmol/L Chloride 103 (98-107) mmol/L Carbon Dioxide 26 (22-32) mmol/L BUN 29 H (7-17) mg/dL Creatinine 1.10 H (0.52-1.04) mg/dL Estimated GFR 47.6 L (>60) mL/min BUN/Creatinine Ratio 26.4 H (6-22) Glucose 86 (80-110) mg/dL Calcium 9.7 (8.4-10.2) mg/dL Total Bilirubin 0.5 (0.2-1.3) mg/dL AST 61 H (14-36) IU/L ALT 53 H (9-52) IU/L Alkaline Phosphatase 104 (38-126) U/L Total Creatine Kinase 107 (30-135) U/L CK-MB (CK-2) 6.07 H (<2.37) ng/mL CK-MB (CK-2) Rel Index 5.7 H (1.5-5.0) % Troponin I < 0.012 (0.01-0.034) ng/mL B-Natriuretic Peptide 523 H (<100) Total Protein 6.7 (6.3-8.2) g/dL Albumin 3.9 (3.5-5.0) g/dL Globulin 2.8 (1.7-4.1) g/dL Albumin/Globulin Ratio 1.4 (1.0-2.8) Discharge Plan Departure Patient Disposition: Home Clinical Impression: Congestive heart failure (CHF) Qualifiers: Heart failure type: unspecified Heart failure chronicity: unspecified Qualified Code(s): I50.9 - Heart failure, unspecified Discharge Date/Time: 10/02/18 20:00 Interventions: ED Discharge Assessment Last Done: 10/02/18 20:05 Instructions: DI for Heart Failure Activity Restrictions/Additional Instructions: laboratory results and that chest x-ray shows exacerbation of heart failure. You are placed on Lasix which is a diuretic to remove some of the fluid building up in her legs and lungs. Use as directed. Follow up with your primary care provider here in the next couple days for re-evaluation. Call the office number to schedule follow-up appointment. For any worsening symptoms return to the emergency room. Elevate lower extremities to help with swelling. Prescriptions: New furosemide 40 mg tablet 40 mg PO BID Qty: 14 RF: 0 No Action meclizine 25 mg tablet 25 mg PO DAILY PRN (Reason: dizziness) Qty: 30 RF: 0 metoprolol tartrate 100 MG tablet 100 mg PO BID Qty: 0 RF: 0 apixaban [Eliquis] 2.5 mg tablet 2.5 mg PO BID Qty: 180 RF: 0 hydrochlorothiazide 12.5 mg tablet 12.5 mg PO DAILY Qty: 30 RF: 0 diltiazem HCl [Cartia XT] 120 mg capsule,extended release 24hr 240 mg PO DAILY RF: 0 Referrals: Kierra Bess DO [Primary Care Provider] - <Hitesh Smart DO - Last Filed: 10/02/18 22:08> Cosign ED Attending [place] Attestation: I was available for consultation during this patient's emergency department encounter
[2018-10-02] MEDS: FUROSEMIDE 40 MG/4 ML VIAL IV (19:12)
[2018-10-02 19:30] VITALS: BP 137/97; PULSE 58; RESP 11; O2SAT 93
== END 2018-10-02 20:00 | disposition home or self-care (01) ==
PROVIDERS: Emergency Provider Nurse Practitioner Family; PCP Family Medicine
DX: I50.9 Heart failure, unspecified (principal); I48.91 Unspecified atrial fibrillation
CPT/HCPCS: 36591; 71045; 80053; 82550; 82553; 83880; 84484; 85025; 85610; 93005; 96374; 99283; 99285; J1940

== ENCOUNTER → 2018-10-10 13:02 | Outpatient (CLI) | payer MEDICARE, SELFPAY ==
[2018-10-10 18:41] LABS: BUN Creatinine Ratio 36.7 (6-22); Blood Urea Nitrogen 44 mg/dL (7-17); Calcium 10.1 mg/dL (8.4-10.2); Carbon Dioxide 35 mmol/L (22-32); Chloride 94 mmol/L (98-107); Glucose 86 mg/dL (80-110); HEMOLYSIS 15 (0-50); Potassium 4.3 mmol/L (3.4-5.1); Sodium 139 mmol/L (137-145)
== END ==
PROVIDERS: Family Provider Family Medicine; PCP Family Medicine; Visit Provider Physician Assistant
DX: I50.9 Heart failure, unspecified (principal); N28.9 Disorder of kidney and ureter, unspecified
CPT/HCPCS: 36415; 80048

== ENCOUNTER → 2018-10-20 12:59 | Outpatient (CLI) | payer MEDICARE, SELFPAY ==
--- NOTE | 2018-10-20 13:02 | DI.RAD.S_ITS ---
PROCEDURE: XR CHEST 2V INDICATIONS: follow up on CHF TECHNIQUE: 2 views of the chest were acquired. COMPARISON: [facility], CR, XR CHEST 1V, 10/02/2018, 17:27. FINDINGS: Surgical changes and devices: None. Lungs and pleura: Lungs are clear. No pleural effusions or pneumothorax. Mediastinum: Mediastinal contours are normal. Heart is enlarged. Bones and chest wall: No suspicious bony abnormalities. Bones are diffusely osteopenic. Soft tissues appear unremarkable. IMPRESSION: No acute cardiopulmonary disease process. Dictated by: Margarita Harris MD, PhD on 10/20/2018 at 14:04 Approved by: Margarita Harris MD, PhD on 10/20/2018 at 14:05
[2018-10-20 14:04] LABS: B Type Natriuretic Peptide 465 (<100)
[2018-10-20 14:27] LABS: Alanine Aminotransferase 38 IU/L (9-52); Albumin 4.4 g/dL (3.5-5.0); Albumin Globulin Ratio 1.8 (1.0-2.8); Alkaline Phosphatase 84 U/L (38-126); Aspartate Aminotransferase 40 IU/L (14-36); BUN Creatinine Ratio 38.2 (6-22); Bilirubin Total 0.4 mg/dL (0.2-1.3); Blood Urea Nitrogen 42 mg/dL (7-17); Calcium 9.9 mg/dL (8.4-10.2); Carbon Dioxide 29 mmol/L (22-32); Chloride 101 mmol/L (98-107); Estimated Glomerular Filt Rate 47.6 mL/min (>60); Globulin 2.4 g/dL (1.7-4.1); Glucose 83 mg/dL (80-110); HEMOLYSIS < 15 (0-50); Potassium 4.7 mmol/L (3.4-5.1); Sodium 140 mmol/L (137-145); Total Protein 6.8 g/dL (6.3-8.2)
== END ==
PROVIDERS: PCP Family Medicine; Visit Provider Family Medicine
DX: I50.9 Heart failure, unspecified (principal)
CPT/HCPCS: 36415; 71046; 80053; 83880

== ENCOUNTER → 2018-12-19 13:40 | Outpatient (CLI) | payer MEDICARE, SELFPAY | PROVIDERS: PCP Family Medicine; Visit Provider Physician Assistant | DX: Z13.820 Encounter for screening for osteoporosis (principal); M81.0 Age-related osteoporosis without current pathological fracture; Z78.0 Asymptomatic menopausal state; M41.20 Other idiopathic scoliosis, site unspecified | CPT/HCPCS: 77080 ==

== ENCOUNTER → 2020-01-07 14:00 | Outpatient (CLI) | payer MEDICARE, SELFPAY ==
[2020-01-07 14:29] LABS: RBC Urine None Seen (0-5/HPF)
[2020-01-07 14:56] LABS: Appearance Urine UA CLEAR; Bilirubin Urine UA NEGATIVE (NEGATIVE); Color Urine UA YELLOW; Glucose Urine UA NEGATIVE (Negative); Ketones Urine UA NEGATIVE (NEGATIVE); Leukocyte Esterase Urine UA NEGATIVE (NEGATIVE); Nitrite Urine UA NEGATIVE (Negative); Occult Blood Urine UA NEGATIVE (Negative); Protein Urine UA TRACE (Negative); Specific Gravity Urine UA >=1.030 (1.000-1.035); Urobilinogen Urine UA 0.2 E.U./dL (0.2)
[2020-01-07 14:56] LABS: Add Manual Diff / Slide Review NO; Basophils Absolute Auto 0 /uL (0-100); Basophils Percent Auto 0.4 % (0-2); Eosinophils Absolute Auto 100 /uL (0-450); Eosinophils Percent Auto 2.3 % (2-4); Hematocrit 44.3 % (36-46); Hemoglobin 14.7 g/dL (12.0-16.0); Lymphocytes Absolute Auto 1200 /uL (1100-4500); Lymphocytes Percent Auto 20.2 % (25-40); Mean Corpuscular HGB Conc 33.3 % (30-36); Mean Corpuscular Hemoglobin 31.6 PG (26-34); Mean Corpuscular Volume 94.9 fL (80-100); Monocytes Absolute Auto 500 /uL (0-900); Monocytes Percent Auto 7.8 % (3-14); Neutrophils Absolute Auto 4200 /uL (1500-7000); Neutrophils Percent Auto 69.3 % (50-75); Platelet Count 203 X10^3/uL (150-400); Red Blood Cell Count 4.66 X10^6/uL (4.0-5.2); Red Cell Distribution Width 13.8 % (11.6-14.8); White Blood Cell Count 6.1 X10^3/uL (4.5-11.0)
[2020-01-07 15:17] LABS: Amorphous Sediment Urine 1+; Bacteria Urine Occasional (0-1); Squamous Epithelial Cell Urine 1-5 /HPF (0-5/HPF); WBC Urine 1-5/HPF (0-5/HPF)
[2020-01-07 15:18] LABS: Culture Indicated Urine Cult Not Indicated; Mucus Urine 1+ (Negative)
[2020-01-07 15:19] LABS: Alanine Aminotransferase 18 IU/L (<35); Albumin 4.3 g/dL (3.5-5.0); Albumin Globulin Ratio 1.6 (1.0-2.8); Alkaline Phosphatase 74 U/L (38-126); Aspartate Aminotransferase 41 IU/L (14-36); BUN Creatinine Ratio 31.7 (6-22); Bilirubin Total 0.5 mg/dL (0.2-1.3); Blood Urea Nitrogen 32 mg/dL (7-17); Calcium 10.4 mg/dL (8.4-10.2); Carbon Dioxide 31 mmol/L (22-32); Chloride 102 mmol/L (98-107); Estimated Glomerular Filt Rate 52.3 mL/min (>60); Globulin 2.7 g/dL (1.7-4.1); Glucose 95 mg/dL (80-110); HEMOLYSIS < 15 (0-50); Potassium 4.4 mmol/L (3.4-5.1); Sodium 137 mmol/L (137-145)
[2020-01-07 15:27] LABS: NT-proBNP (BNP-Adult 18+) 1540 pg/mL (<450)
[2020-01-07 15:50] LABS: TSH w/ Reflex to FT4 4.46 uIU/mL (0.47-4.68)
== END ==
PROVIDERS: PCP Family Medicine; Referring Provider Family Medicine; Visit Provider Family Medicine
DX: I48.91 Unspecified atrial fibrillation (principal); N28.9 Disorder of kidney and ureter, unspecified; Z13.1 Encounter for screening for diabetes mellitus; I50.21 Acute systolic (congestive) heart failure
CPT/HCPCS: 36415; 80053; 81001; 83036; 83880; 84443; 85025

== ENCOUNTER → 2020-01-11 11:59 | Outpatient (CLI) | payer MEDICARE, SELFPAY ==
[2020-01-14 13:36] LABS: Fecal Immunochemical Test Negative (Negative)
== END ==
PROVIDERS: PCP Family Medicine; Referring Provider Family Medicine; Visit Provider Family Medicine
DX: Z12.11 Encounter for screening for malignant neoplasm of colon (principal)
CPT/HCPCS: 82274

== ENCOUNTER → 2020-02-06 12:43 | Outpatient (CLI) | payer MEDICARE, SELFPAY ==
--- NOTE | 2020-02-06 12:47 | DI.MG.S_ITS ---
BILATERAL DIGITAL DIAGNOSTIC MAMMOGRAM 3D/2D: 02/06/2020 CLINICAL: Screening in follow-up. Comparison is made to exams dated: 05/18/2018 breast MRI - [facility], 03/22/2018 ultrasound, 11/29/2017 mammogram, and 11/09/2017 mammogram - [facility]. The tissue of right breast is heterogeneously dense. This may lower the sensitivity of mammography. There are scattered fibroglandular elements in left breast. No significant masses, calcifications, or other findings are seen in either breast. IMPRESSION: INCOMPLETE: NEEDS ADDITIONAL IMAGING EVALUATION There is no abnormality seen in the right breast to correspond with the pain indicated by a square marker in the axillary tail, however, ultrasound is recommended. Targeted ultrasound is recommended for further evaluation, which will be performed on the same day immediately following this exam. This exam was interpreted at Station ID: [id number]. NOTE: For mammograms, a report in lay terms will be sent to the patient. Approximately 15% of breast malignancies will not be visualized mammographically. In the management of a palpable breast mass, a negative mammogram must not discourage biopsy of a clinically suspicious lesion. Electronically Signed By: Arslan Griffiths M.D. ar/:02/06/2020 14:21:49 ACR BI-RADS Category 0: Incomplete [id number]
--- NOTE | 2020-02-06 12:47 | DI.US.S_ITS ---
LIMITED ULTRASOUND OF RIGHT BREAST: 02/06/2020 CLINICAL: Right axillary tail pain x 6-8 weeks. Comparison is made to exams dated: 02/06/2020 mammogram - [facility], 05/18/2018 breast MRI - [facility], and 11/09/2017 mammogram - [facility]. Ultrasound of the right breast 11 o'clock region was performed. Lema scale images of the real-time examination were reviewed. No significant abnormalities were seen sonographically in the right breast. IMPRESSION: NEGATIVE There is no sonographic evidence of malignancy. There is no abnormality seen in the right breast to correspond with the pain at 11 o'clock, however, clinical correlation is recommended. A 1 year screening mammogram is recommended. This exam was interpreted at Station ID: [id number]. Electronically Signed By: Arslan Griffiths M.D. ar/:02/06/2020 15:39:54 letter sent: Normal Exam Ultrasound BI-RADS: 1 Negative
== END ==
PROVIDERS: PCP Family Medicine; Referring Provider Family Medicine; Visit Provider Family Medicine
DX: R92.8 Other abnormal and inconclusive findings on diagnostic imaging of breast (principal); N63.20 Unspecified lump in the left breast, unspecified quadrant; N64.4 Mastodynia
CPT/HCPCS: 76642; 77066; G0279

== ENCOUNTER → 2020-02-07 08:12 | Outpatient (CLI) | payer MEDICARE, SELFPAY ==
[2020-02-07 10:33] LABS: Alanine Aminotransferase 16 IU/L (<35); Albumin 4.2 g/dL (3.5-5.0); Albumin Globulin Ratio 1.6 (1.0-2.8); Alkaline Phosphatase 71 U/L (38-126); Aspartate Aminotransferase 37 IU/L (14-36); BUN Creatinine Ratio 35.8 (6-22); Bilirubin Total 0.6 mg/dL (0.2-1.3); Blood Urea Nitrogen 34 mg/dL (7-17); Calcium 9.6 mg/dL (8.4-10.2); Carbon Dioxide 29 mmol/L (22-32); Chloride 105 mmol/L (98-107); Estimated Glomerular Filt Rate 56.2 mL/min (>60); Globulin 2.6 g/dL (1.7-4.1); Glucose 86 mg/dL (80-110); HEMOLYSIS < 15 (0-50); Potassium 4.1 mmol/L (3.4-5.1); Sodium 139 mmol/L (137-145); Total Protein 6.8 g/dL (6.3-8.2)
== END ==
PROVIDERS: PCP Family Medicine; Referring Provider Family Medicine; Visit Provider Family Medicine
DX: I48.91 Unspecified atrial fibrillation (principal)
CPT/HCPCS: 36415; 80053

== ENCOUNTER → 2020-09-10 14:27 | Outpatient (CLI) | payer MEDICARE, SELFPAY ==
--- NOTE | 2020-09-10 14:29 | DI.US.S_ITS ---
PROCEDURE: US PERIPH VENOUS LOW EXTREM BI INDICATIONS: LOWER LEG PAIN AND SWELLING TECHNIQUE: Real-time imaging, as well as color and pulse Doppler interrogation, were performed of the deep veins of both legs from the inguinal ligament to the popliteal fossa. COMPARISON: None. FINDINGS: Right: The common femoral, femoral and popliteal veins are normally compressible, and free of intraluminal thrombus. Color and pulse Doppler demonstrate normal phasic intravascular flow. There is normal augmentation response to distal compression maneuver. Left: The common femoral, femoral and popliteal veins are normally compressible, and free of intraluminal thrombus. Color and pulse Doppler demonstrate normal phasic intravascular flow. There is normal augmentation response to distal compression maneuver. Note is made of left calf soft tissue edema. IMPRESSION: Negative for deep venous thrombosis. Dictated by: Des Turcios M.D. on 09/10/2020 at 14:20 Approved by: Des Turcios M.D. on 09/10/2020 at 14:20
== END ==
PROVIDERS: PCP Family Medicine; Referring Provider Physician Assistant; Visit Provider Physician Assistant
DX: M79.89 Other specified soft tissue disorders (principal)
CPT/HCPCS: 93970

== ENCOUNTER → 2020-09-15 10:24 | Outpatient (CLI) | payer MEDICARE, SELFPAY | PROVIDERS: PCP Family Medicine; Referring Provider Physician Assistant; Visit Provider Family Medicine | DX: I87.2 Venous insufficiency (chronic) (peripheral) (principal); L97.822 Non-pressure chronic ulcer of other part of left lower leg with fat layer exposed; Z79.01 Long term (current) use of anticoagulants; R53.83 Other fatigue; I10 Essential (primary) hypertension; I48.91 Unspecified atrial fibrillation | CPT/HCPCS: 11042; 99204; 99212 ==

== ENCOUNTER 2020-09-15 13:18 | Emergency (ER) | payer MEDICARE, SELFPAY ==
[2020-09-15] VITALS (28 sets, daily range): BP systolic 101–146; BP diastolic 55–78; PULSE 47–104; RESP 12–16; TEMP 35; O2SAT 84–100
--- NOTE | 2020-09-15 13:25 | DI.CT.S_ITS ---
PROCEDURE: CT HEAD/BRAIN WO CON INDICATIONS: Speaking difficulties TECHNIQUE: Noncontrast 4.5 mm thick angled axial sections acquired from the foramen magnum to the vertex, with coronal and sagittal reformats. For radiation dose reduction, the following was used: automated exposure control, adjustment of mA and/or kV according to patient size. COMPARISON: None. FINDINGS: Image quality: Excellent. CSF spaces: Basal cisterns are patent. No extra-axial fluid collections. The ventricles are symmetric in size and shape. Brain: No intracranial bleeds or masses. There is cerebral volume loss for age, with resultant ventricular and sulcal prominence. There are periventricular and deep white matter chronic small vessel ischemic changes. There is intracranial internal carotid artery atherosclerosis. Skull and face: Calvarium and visualized facial bones appear intact, without suspicious lesions. Sinuses: Visualized sinuses and mastoids are clear. IMPRESSION: 1. No CT evidence of acute intracranial pathology. 2. Age-appropriate atrophy and mild white matter chronic small vessel ischemic changes. Dictated by: Chaim Jernigan M.D. on 09/15/2020 at 13:54 Approved by: Chaim Jernigan M.D. on 09/15/2020 at 13:55
--- NOTE | 2020-09-15 13:59 | ED_ITS ---
HPI - Neuro Symptoms/Deficit General Chief Complaint: Neuro Symptoms/Deficit Stated Complaint: Sent From , Slowness In Speaking and Moving Time Seen by Provider: 09/15/20 13:24 Source: patient and family Mode of arrival: Wheelchair Limitations: no limitations History of Present Illness HPI Narrative: Patient is an 85-year-old female. She is on anticoagulation secondary to history of atrial fibrillation. She is here with her daughter for evaluation of slow notice in speaking, confusion, slurring words and balance issues. It appears that the last known normal for this patient was on Tuesday of last week. The daughter states she talked to her mother on that day and she was at her baseline which is alert and oriented without any deficits. The patient states that on Tuesday she started to not feel very good. States since that time she has progressively felt more weak. She has not fallen. She does state that she is having problems finding words. The patient's daughter talked to her on Tuesday and noticed the symptoms. She thinks that they are not necessarily worse today than what they were on Tuesday. They went to a wound care visit today secondary to lower extremity edema and wounds and went to the walk-in clinic and was sent here to the emergency department. Besides the speaking issues and the unsteadiness and the confusion patient reports no other symptoms. On Anticoagulants: Yes Related Data Home Medications Medication Instructions Recorded Confirmed diltiazem HCl [Cartia XT] 240 mg PO DAILY 10/02/18 08/04/20 Previous Rx's Medication Instructions Recorded triamcinolone acetonide 0.1 % 1 applictn TOP BID #30 gram 04/23/19 topical cream potassium chloride 10 mEq 10 meq PO DAILY #90 cap 10/15/19 capsule,extended release furosemide 20 mg tablet 20 mg PO DAILY #90 tab 01/07/20 risedronate 35 mg tablet 35 mg PO QWEEK #12 tab 01/07/20 apixaban 2.5 mg tablet See Rx Instructions .ROUTE 04/07/20 .COMPLEX #180 tab metoprolol tartrate 50 mg tablet 50 mg PO BID #180 tab 04/09/20 Allergies Allergy/AdvReac Type Severity Reaction Status Date / Time levofloxacin [From LEVAQUIN] Allergy Intermediate knocked Verified 09/15/20 13:43 me out, weak and dizzy Sulfa (Sulfonamide Allergy Mild ITCHY WELTS Verified 09/15/20 13:43 Antibiotics) [SULFA (SULFONAMIDE ANTIBIOTICS)] Review of Systems Constitutional Constitutional: Reports fatigue, Denies fever(s) and Denies headache(s) Eyes Eyes: Denies blurry vision and Denies change in vision ENT Ears, Nose, Mouth, and Throat: Reports dizziness, Denies headache(s), Reports disequilibrium and Denies sore throat Cardiovascular Cardiovascular: Denies chest pain, Denies rapid heart rate, Denies dyspnea and Denies dyspnea on exertion Respiratory Respiratory: Denies cough, Denies dyspnea and Denies dyspnea on exertion Gastrointestinal Gastrointestinal: Denies abdominal pain, Denies nausea and Denies vomiting Genitourinary Genitourinary: Denies dysuria Genitourinary: Denies dysuria Musculoskeletal Musculoskeletal: Denies arthralgias, Denies myalgias and Denies tingling Integumentary/Breasts Skin/Breast: Denies rash Neurologic Neurologic: Reports abnormal movements, Reports abnormal speech, Reports behavioral changes, Reports confusion, Reports dizziness, Denies headache(s), Denies tingling and Reports disequilibrium Psychiatric Psychiatric: Reports behavioral changes and Reports confusion Endocrine Endocrine: Reports fatigue Hematologic/Lymphatic On Anticoagulants: Yes Allergic/Immunologic Allergic/Immunologic: Denies urticaria Patient History Medical History Atrial fibrillation (Unknown) Basal cell carcinoma Contusion Hearing loss (Unknown) Hypertension (Unknown) Osteopenia (Unknown) Osteoporosis Pneumonia (09/2016) Spinal stenosis (Unknown) Tinnitus of both ears (Unknown) Surgical History Hx of cystoscopy (04/2011) Family History Father Hypertension Mother Hypertension Social History Smoking Status: Never smoker alcohol intake: never substance use type: does not use Smoking Status: Never smoker alcohol intake frequency: 0-2 drinks per day Substance Use Type: does not use Exam Initial Vital Signs Initial Vital Signs: Vital Signs Temperature 95 F L 09/15/20 13:25 Pulse Rate 60 09/15/20 13:25 Respiratory Rate 16 09/15/20 13:25 Blood Pressure 107/69 09/15/20 13:25 Pulse Oximetry 100 09/15/20 13:25 Const General: cooperative, comfortable and well groomed HENMT Head: normal to inspection and normocephalic Resp Effort & Inspection: normal respiratory effort Auscultation: clear to auscultation bilaterally Cardio Rate: regular rate Rhythm: abnormal rhythm Pulses: radial pulses present GI Inspection: non-distended Palpation: soft Skin Other: Bilateral lower extremities covered with bandages with some oozing. Otherwise no new acute changes Neuro General: patient alert, patient awake and moves all extremities Cognition: normal cognition Speech: abnormal speech Sensory Exam: no sensory deficits noted Extrem General: normal to inspection, capillary refill normal and edema Psych Appearance: grossly normal and well kempt Scores GCS [place] coma scale eye opening: Spontaneous Stef coma scale verbal response: Orientated Stef coma scale motor response: Obey commands [place] coma scale total score: 15 NIH Stroke Scale Level of Conciousness: Alert, keenly responsive Ask month/age: Answers both questions correctly. Open/close eyes, close hand: Performs both tasks correctly Best gaze horizontal: Normal Visual carpenter: No visual loss Facial palsy: Normal symetrical movement Left arm drift: No drift for full 10 sec Right arm drift: No drift for full 10 sec Left leg drift: No drift for full 5 sec Right leg drift: No drift for full 5 sec Limb ataxia: Present in one limb Sensory on face/arms/legs: Normal, no sensory loss Best language: Mild to moderate, slurs some words Dysarthria: Mild to mod,some slurring Extinction or inattention: No abnormality Total NIH Stroke scale score: 3 Course Orders Ordered: ED Orders 09/15/20 13:25 CT head/brain wo con Stat EKG-12 Lead Stat 09/15/20 13:44 Comprehensive Metabolic Panel Stat Ethanol (ETOH) Stat Lactate (Lactic Acid) Stat Lipase Stat Thyroid Stimulating Hormone Stat Troponin & CK Cardiac Panel Stat 09/15/20 14:16 Complete Blood Count AUTO DIFF Routine Partial Thromboplastin Time Routine Prothrombin Time INR Routine 09/15/20 14:40 COVID19 Stat 09/15/20 14:50 Ammonia (NH3) Stat 09/15/20 15:41 XR chest 1V Stat Discontinued Medications Prednisone (Prednisone 20 Mg Tablet) 60 mg PO NOW ONE Stop: 09/15/20 18:52 Last Admin: 09/15/20 18:56 Dose: 60 mg Documented by: MAGUI Vital Signs Vital signs: Vital Signs - 8 hr 09/15/20 13:25 09/15/20 13:47 09/15/20 14:00 Temperature 95 F L Pulse Rate 60 78 78 Respiratory Rate 16 15 16 Blood Pressure 107/69 Pulse Oximetry 100 100 99 09/15/20 14:05 09/15/20 14:15 09/15/20 14:30 Temperature Pulse Rate 75 79 68 Respiratory Rate 15 15 14 Blood Pressure 134/76 101/76 Pulse Oximetry 99 99 98 09/15/20 14:45 09/15/20 15:00 09/15/20 15:15 Temperature Pulse Rate 77 60 47 L Respiratory Rate 14 12 13 Blood Pressure 104/60 Pulse Oximetry 99 98 98 09/15/20 15:30 09/15/20 15:45 09/15/20 16:00 Temperature Pulse Rate 58 L 51 L 55 L Respiratory Rate 14 13 13 Blood Pressure 105/55 L 102/56 L Pulse Oximetry 99 99 100 09/15/20 16:15 09/15/20 16:30 09/15/20 16:45 Temperature Pulse Rate 76 51 L 51 L Respiratory Rate 13 16 13 Blood Pressure 102/72 Pulse Oximetry 100 99 100 09/15/20 17:00 09/15/20 17:15 09/15/20 17:30 Temperature Pulse Rate 49 L 59 L 51 L Respiratory Rate 14 15 13 Blood Pressure 105/74 113/64 Pulse Oximetry 100 100 100 09/15/20 17:45 09/15/20 18:00 09/15/20 18:15 Temperature Pulse Rate 56 L 51 L 54 L Respiratory Rate 14 12 14 Blood Pressure 106/57 L Pulse Oximetry 84 L 96 95 09/15/20 18:30 09/15/20 18:31 09/15/20 18:45 Temperature Pulse Rate 49 L 51 L 61 Respiratory Rate 13 12 15 Blood Pressure 146/66 H Pulse Oximetry 96 97 96 09/15/20 19:00 Temperature Pulse Rate 71 Respiratory Rate 16 Blood Pressure Pulse Oximetry MDM - Neuro Symptoms/Deficit Lab Data Attestation: I reviewed the patient's lab results. Result diagrams: 09/15/20 14:16 09/15/20 13:44 Labs: Lab Results 09/15/20 09/15/20 09/15/20 Range/Units 13:44 13:44 13:44 WBC Cancelled RBC Cancelled Hgb Cancelled Hct Cancelled MCV Cancelled MCH Cancelled MCHC Cancelled RDW Cancelled Plt Count Cancelled Neut % (Auto) Cancelled Lymph % (Auto) Cancelled [place] % (Auto) Cancelled Eos % (Auto) Cancelled Baso % (Auto) Cancelled Neut # (Auto) Cancelled Lymph # (Auto) Cancelled [place] # (Auto) Cancelled Eos # (Auto) Cancelled Baso # (Auto) Cancelled Platelet Estimate RBC Morphology Schistocytes PT Cancelled INR Cancelled APTT Cancelled Sodium 139 (137-145) mmol/L Potassium 4.7 (3.4-5.1) mmol/L Chloride 107 (98-107) mmol/L Carbon Dioxide 25 (22-32) mmol/L BUN 63 H (7-17) mg/dL Creatinine 1.56 H (0.52-1.04) mg/dL Estimated GFR 31.6 L (>60) mL/min BUN/Creatinine Ratio 40.4 H (6-22) Glucose 88 (80-110) mg/dL Lactate (0.7-2.1) mmol/L Calcium 9.8 (8.4-10.2) mg/dL Total Bilirubin 0.5 (0.2-1.3) mg/dL AST 51 H (14-36) IU/L ALT 41 H (<35) IU/L Alkaline Phosphatase 132 H (38-126) U/L Ammonia (9-30) umol/L Total Creatine Kinase 73 (30-135) U/L CK-MB (CK-2) TNP CK-MB (CK-2) Rel Index TNP Troponin I < 0.012 (0.01-0.034) ng/mL Total Protein 6.1 L (6.3-8.2) g/dL Albumin 3.6 (3.5-5.0) g/dL Globulin 2.5 (1.7-4.1) g/dL Albumin/Globulin Ratio 1.4 (1.0-2.8) Lipase 309 H (23-300) U/L TSH (0.47-4.68) uIU/mL Ethyl Alcohol < 10 ( - 10) mg/dL SARS-CoV-2 (PCR) (Negative) 09/15/20 09/15/20 09/15/20 Range/Units 13:44 13:44 14:16 WBC 10.0 RBC 4.38 Hgb 13.5 Hct 40.7 MCV 93.0 MCH 30.8 MCHC 33.1 RDW 14.6 Plt Count 22 L* Neut % (Auto) 89.8 H Lymph % (Auto) 5.8 L [place] % (Auto) 3.6 Eos % (Auto) 0.6 L Baso % (Auto) 0.2 Neut # (Auto) 9000 H Lymph # (Auto) 600 L [place] # (Auto) 400 Eos # (Auto) 100 Baso # (Auto) 0 Platelet Estimate Decreased on smear RBC Morphology Not Reportable Schistocytes PT INR APTT Sodium (137-145) mmol/L Potassium (3.4-5.1) mmol/L Chloride (98-107) mmol/L Carbon Dioxide (22-32) mmol/L BUN (7-17) mg/dL Creatinine (0.52-1.04) mg/dL Estimated GFR (>60) mL/min BUN/Creatinine Ratio (6-22) Glucose (80-110) mg/dL Lactate 1.5 (0.7-2.1) mmol/L Calcium (8.4-10.2) mg/dL Total Bilirubin (0.2-1.3) mg/dL AST (14-36) IU/L ALT (<35) IU/L Alkaline Phosphatase (38-126) U/L Ammonia (9-30) umol/L Total Creatine Kinase (30-135) U/L CK-MB (CK-2) CK-MB (CK-2) Rel Index Troponin I (0.01-0.034) ng/mL Total Protein (6.3-8.2) g/dL Albumin (3.5-5.0) g/dL Globulin (1.7-4.1) g/dL Albumin/Globulin Ratio (1.0-2.8) Lipase (23-300) U/L TSH 8.39 H (0.47-4.68) uIU/mL Ethyl Alcohol ( - 10) mg/dL SARS-CoV-2 (PCR) (Negative) 09/15/20 09/15/20 09/15/20 Range/Units 14:16 14:40 14:50 WBC RBC Hgb Hct MCV MCH MCHC RDW Plt Count Neut % (Auto) Lymph % (Auto) [place] % (Auto) Eos % (Auto) Baso % (Auto) Neut # (Auto) Lymph # (Auto) [place] # (Auto) Eos # (Auto) Baso # (Auto) Platelet Estimate RBC Morphology Schistocytes PT 17.3 H INR 1.5 H APTT 51 H Sodium (137-145) mmol/L Potassium (3.4-5.1) mmol/L Chloride (98-107) mmol/L Carbon Dioxide (22-32) mmol/L BUN (7-17) mg/dL Creatinine (0.52-1.04) mg/dL Estimated GFR (>60) mL/min BUN/Creatinine Ratio (6-22) Glucose (80-110) mg/dL Lactate (0.7-2.1) mmol/L Calcium (8.4-10.2) mg/dL Total Bilirubin (0.2-1.3) mg/dL AST (14-36) IU/L ALT (<35) IU/L Alkaline Phosphatase (38-126) U/L Ammonia < 9 L (9-30) umol/L Total Creatine Kinase (30-135) U/L CK-MB (CK-2) CK-MB (CK-2) Rel Index Troponin I (0.01-0.034) ng/mL Total Protein (6.3-8.2) g/dL Albumin (3.5-5.0) g/dL Globulin (1.7-4.1) g/dL Albumin/Globulin Ratio (1.0-2.8) Lipase (23-300) U/L TSH (0.47-4.68) uIU/mL Ethyl Alcohol ( - 10) mg/dL SARS-CoV-2 (PCR) Negative (Negative) Urine Dip Bedside Urine Glucose Negative Bedside Urine Bilirubin - Negative Bedside Urine Ketone - Negative Urine Specific [place] 1.030 Bedside Urine Occult Blood - Negative Bedside Urine pH 5.5 Bedside Urine Protein +/- 15 Bedside Urine Urobilinogen - Negative Bedside Urine Nitrite - Negative Bedside Urine Leukocytes - Negative Esterase Imaging Data CT scan - head: Radiologist's Impression: [address] [id number] Scan ReportSigned Patient: Nighat Doll [facility]#: [id number]: [id number]:[id number]/Sex: 85 / FDate of Service: 09/15/20Loc: EDAccession Number: [id number] Procedure: CT head/brain wo con Ordering Provider: Hitesh Smart D.O. PROCEDURE: CT HEAD/BRAIN WO CON INDICATIONS: Speaking difficulties TECHNIQUE: Noncontrast 4.5 mm thick angled axial sections acquired from the foramen magnum to the vertex, with coronal and sagittal reformats. For radiation dose reduction, the following was used: automated exposure control, adjustment of mA and/or kV according to patient size. COMPARISON: None. FINDINGS: Image quality: Excellent. CSF spaces: Basal cisterns are patent. No extra-axial fluid collections. The ventricles are symmetric in size and shape. Brain: No intracranial bleeds or masses. There is cerebral volume loss for age, with resultant ventricular and sulcal prominence. There are periventricular and deep white matter chronic small vessel ischemic changes. There is intracranial internal carotid artery atherosclerosis. Skull and face: Calvarium and visualized facial bones appear intact, without suspicious lesions. Sinuses: Visualized sinuses and mastoids are clear. IMPRESSION: 1. No CT evidence of acute intracranial pathology. 2. Age-appropriate atrophy and mild white matter chronic small vessel ischemic changes. Dictated by: Chaim Jernigan M.D. on 09/15/2020 at 13:54 Approved by: Chaim Jernigan M.D. on 09/15/2020 at 13:55 Chest x-ray: Radiologist's Impression: [address] [id number] ReportSigned Patient: Nighat Doll [facility]#: [id number]: [id number]:[id number]/Sex: 85 / FDate of Service: 09/15/20Loc: EDAccession Number: [id number] Procedure: XR chest 1V Ordering Provider: Hitesh Smart D.O. PROCEDURE: XR CHEST 1V INDICATIONS: Eval for pneumonia TECHNIQUE: One view of the chest was acquired. COMPARISON: [facility], XR CHEST 2V, 10/20/2018, 13:21. FINDINGS: Surgical changes and devices: None. Ill-defined mild opacity seen in the right costophrenic angle. No pleural effusions or pneumothorax. Scattered subsegmental atelectasis and/or scarring. No focal consolidation. Mediastinum: Mediastinal contours appear normal. Heart size is stable. Bones and chest wall: No suspicious bony lesions. Overlying soft tissues appear unremarkable. Lateral curvature of the spine and discogenic changes. IMPRESSION: Right costophrenic angle ill-defined opacity, possibly scarring/atelectasis versus trace pleural fluid. If there is persistent clinical diagnostic uncertainty, continued surveillance with short interval chest radiographs after treatment is recommended. Dictated by: Richy Hernandez M.D. on 09/15/2020 at 16:13 Approved by: Richy Hernandez M.D. on 09/15/2020 at 16:15 ECG Data Attestation: I personally reviewed and interpreted this ECG as follows: Prior ECG tracings: not available for review Interpretation: Atrial fibrillation Ventricular rate is 69 Artifact noted MDM Narrative Medical decision making narrative: Patient is alert oriented x3. Does have a GCS of 15. Her NIH score is 3. Her last known normal was almost 1 week ago. She does have some slurring of her words and definitely is slow in answering questions. Her daughter states this is not normal for her. Her head CT is u nremarkable. She also has other new findings today to include thrombocytopenia. She also has a slight increase in her BUN and creatinine and also her LFTs. These are also new for her. She has bilateral lower extremity edema with ulcerations on her left lower extremity. She has purpura on her right leg which the patient states is new within the past week. I did discuss the case with Dr. Rodriguez with Hematology/Oncology who recommended that she stop the apixaban until her platelets are above 50. There was also some concern about TTP given her neurologic changes, the purpura on her right lower extremity, the kidney function changes. She was given 1 milligram/kilogram of prednisone here in the emergency department. A peripheral smear was obtained. I do not think that it comes through in this note however she was negative for schistocytes. Discussed the case with Dr. Benoit internal medicine here the hospital who felt that she would be best served transfer to a place that has specialist consultation. I discussed the case with Dr. Centeno the internal medicine [facility] who accepts the patient in transfer. I did discuss the transport with the patient and her daughter at bedside. Patient is stable for transport. Discharge Plan Departure Patient Disposition: [facility] Clinical Impression: Dysarthria, Thrombocytopenia, Acute kidney injury, Purpura Prescriptions: No Action triamcinolone acetonide 0.1 % cream 1 applictn TOP BID Qty: 30 RF: 3 potassium chloride 10 mEq capsule, extended release 10 meq PO DAILY Qty: 90 RF: 1 apixaban [Eliquis] 2.5 mg tablet See Rx Instructions .ROUTE .COMPLEX Qty: 180 RF: 3 furosemide 20 mg tablet 20 mg PO DAILY Qty: 90 RF: 1 risedronate [Actonel] 35 mg tablet 35 mg PO QWEEK Qty: 12 RF: 3 metoprolol tartrate 50 mg tablet 50 mg PO BID Qty: 180 RF: 3 diltiazem HCl [Cartia XT] 120 mg capsule,extended release 24hr 240 mg PO DAILY RF: 0 Referrals: Isaak Gonsales, [Primary Care Provider] -
[2020-09-15 14:22] LABS: Add Manual Diff / Slide Review NO; Basophils Absolute Auto 0 /uL (0-100); Basophils Percent Auto 0.2 % (0-2); Eosinophils Absolute Auto 100 /uL (0-450); Eosinophils Percent Auto 0.6 % (2-4); Hematocrit 40.7 % (36-46); Hemoglobin 13.5 g/dL (12.0-16.0); Lymphocytes Absolute Auto 600 /uL (1100-4500); Lymphocytes Percent Auto 5.8 % (25-40); Mean Corpuscular HGB Conc 33.1 % (30-36); Mean Corpuscular Hemoglobin 30.8 PG (26-34); Monocytes Absolute Auto 400 /uL (0-900); Monocytes Percent Auto 3.6 % (3-14); Neutrophils Absolute Auto 9000 /uL (1500-7000); Neutrophils Percent Auto 89.8 % (50-75); Red Blood Cell Count 4.38 X10^6/uL (4.0-5.2); Red Cell Distribution Width 14.6 % (11.6-14.8)
[2020-09-15 14:27] LABS: Platelet Count 22 X10^3/uL (150-400)
[2020-09-15 14:31] LABS: INR 1.5 (0.9-1.3); Prothrombin Time 17.3 SECONDS (10.1-12.7)
[2020-09-15 14:34] LABS: PTT Partial Thromboplastin Tim 51 SECONDS (26.4-36.2)
[2020-09-15 14:44] LABS: Platelet Estimate Decreased on smear
[2020-09-15 14:52] LABS: Lactate (Lactic Acid) 1.5 mmol/L (0.7-2.1)
[2020-09-15 14:57] LABS: Alanine Aminotransferase 41 IU/L (<35); Albumin 3.6 g/dL (3.5-5.0); Albumin Globulin Ratio 1.4 (1.0-2.8); Alkaline Phosphatase 132 U/L (38-126); Aspartate Aminotransferase 51 IU/L (14-36); BUN Creatinine Ratio 40.4 (6-22); Bilirubin Total 0.5 mg/dL (0.2-1.3); Blood Urea Nitrogen 63 mg/dL (7-17); Calcium 9.8 mg/dL (8.4-10.2); Carbon Dioxide 25 mmol/L (22-32); Chloride 107 mmol/L (98-107); Estimated Glomerular Filt Rate 31.6 mL/min (>60); Ethanol (ETOH) < 10 mg/dL; Globulin 2.5 g/dL (1.7-4.1); Glucose 88 mg/dL (80-110); HEMOLYSIS < 15 (0-50); Lipase 309 U/L (23-300); Potassium 4.7 mmol/L (3.4-5.1); Sodium 139 mmol/L (137-145); Total Protein 6.1 g/dL (6.3-8.2)
[2020-09-15 15:06] LABS: Ammonia (NH3) < 9 umol/L (9-30)
[2020-09-15 15:07] LABS: Creatine Kinase 73 U/L (30-135)
[2020-09-15 15:07] LABS: COVID19 -Nasal RAPID Negative (Negative)
[2020-09-15 15:23] LABS: Thyroid Stimulating Hormone 8.39 uIU/mL (0.47-4.68)
[2020-09-15 15:29] LABS: Troponin I < 0.012 ng/mL (0.01-0.034)
--- NOTE | 2020-09-15 15:41 | DI.RAD.S_ITS ---
PROCEDURE: XR CHEST 1V INDICATIONS: Eval for pneumonia TECHNIQUE: One view of the chest was acquired. COMPARISON: [facility], CR, XR CHEST 2V, 10/20/2018, 13:21. FINDINGS: Surgical changes and devices: None. Ill-defined mild opacity seen in the right costophrenic angle. No pleural effusions or pneumothorax. Scattered subsegmental atelectasis and/or scarring. No focal consolidation. Mediastinum: Mediastinal contours appear normal. Heart size is stable. Bones and chest wall: No suspicious bony lesions. Overlying soft tissues appear unremarkable. Lateral curvature of the spine and discogenic changes. IMPRESSION: Right costophrenic angle ill-defined opacity, possibly scarring/atelectasis versus trace pleural fluid. If there is persistent clinical diagnostic uncertainty, continued surveillance with short interval chest radiographs after treatment is recommended. Dictated by: Richy Hernandez M.D. on 09/15/2020 at 16:13 Approved by: Richy Hernandez M.D. on 09/15/2020 at 16:15
[2020-09-15] MEDS: predniSONE 20 MG TABLET 60 MG PO (18:56)
--- NOTE | 2020-09-15 19:32 | PC.NURSE ---
report given to Ale BARCENAS at [facility].
== END 2020-09-15 20:05 | disposition short-term general hospital (02) ==
PROVIDERS: Emergency Provider Emergency Medicine; PCP Family Medicine
DX: R47.1 Dysarthria and anarthria (principal); D69.6 Thrombocytopenia, unspecified; N17.9 Acute kidney failure, unspecified; D69.2 Other nonthrombocytopenic purpura; I48.91 Unspecified atrial fibrillation; Z79.01 Long term (current) use of anticoagulants; R42 Dizziness and giddiness; Z20.822 Contact with and (suspected) exposure to COVID-19; L97.822 Non-pressure chronic ulcer of other part of left lower leg with fat layer exposed; R53.83 Other fatigue; I10 Essential (primary) hypertension; I87.2 Venous insufficiency (chronic) (peripheral)
CPT/HCPCS: 11042; 36415; 70450; 71045; 80053; 80320; 81003; 82140; 82550; 83605; 83690; 84443; 84484; 85025; 85610; 85730; 87635; 93005; 99212; 99284; C9803